=== PATIENT | female | born 1955 | race Hispanic/Latino ===

== ENCOUNTER 2024-12-01 12:52 | Day surgery (SDC) | payer OTHER ==
--- NOTE | 2024-11-30 14:14 | RAD REPORT ---
EXAMINATION: TWO VIEW CHEST XR CLINICAL INDICATION: pre op for day surgery TECHNIQUE: 2 views of the chest was performed. COMPARISON: 03/17/2023 FINDINGS: The lungs are well inflated and clear. The heart is mildly enlarged in size. No displaced fractures e vident. IMPRESSION: No acute or significant abnormalities.
[2024-11-30 14:37] LABS: Absolute Basophils 0.1 K/uL (0-0.5); Absolute Eosinophils 0.1 K/uL (0-0.5); Absolute Lymphocytes (CBC) 1.4 K/uL (0.7-4.9); Absolute Monocytes 0.5 K/uL (0.1-1.3); Basophils % 1.2 % (0-1.3); Eosinophils % 0.8 % (0-4.4); Hematocrit 42.3 % (36.0-45.0); Hemoglobin 14.3 g/dL (12.0-15.0); Lymphocytes % 17.5 % (15.3-44.8); MCH 31.2 pg (27.0-35.0); MCHC 33.8 g/dL (32.0-36.0); MCV 92.5 fL (80-100); MPV 8.7 fL (7.6-11.3); Monocytes % 6.7 % (3.3-12.3); Neutrophils % 73.8 % (41.7-73.7); Nucleated Red Blood Cells % 0.1 % (0-0); Platelets 323 thou/uL (152-406); RBC Red Blood Cell Count 4.57 M/uL (3.86-4.86); Red Cell Distribution Width 13.4 % (12.1-15.2)
[2024-11-30 14:50] LABS: Anion Gap 9.6 mEq/L (5.0-15.0); Potassium 3.6 mEq/L (3.5-5.1)
--- NOTE | 2024-12-01 12:42 | EKG ---
Test Date: 2024-11-30 Test Time: 14:29:22 Personnel Recruiter: PREO MEASUREMENT RESULTS: Intervals: Rate: 57 IA: 162 QRSD: 92 QT: 412 QTc: 401 [place]: P: 78 IA: 162 QRS: 77 T: 77 INTERPRETIVE STATEMENTS: Sinus bradycardia Otherwise normal ECG No previous ECG available for comparison Electronically Signed On 12-01-24 12:40:38 FACIALIST by Ketan Kumar
[2024-12-01] MEDS ORDERED: NA CHLORIDE 0.9% 1,000 ML ONE (13:23)
[2024-12-01] MEDS ORDERED: propofoL 200 MG/20 ML VIAL IV ONE (13:50)
[2024-12-01] MEDS ORDERED: FENTANYL CITR 100 MCG/2 ML ONE (13:51)
[2024-12-01] MEDS ORDERED: LIDOCAINE 2% MPF 5 ML VIAL ONE (13:51)
[2024-12-01] MEDS ORDERED: ONDANSETRON 4 MG/2 ML VIAL ONE (13:53)
[2024-12-01] MEDS ORDERED: MIDAZOLAM HCL 2 MG/2 ML INJ ONE (14:30)
[2024-12-01] MEDS: CEFAZOLIN SODIUM 1 GM/VIAL ONE (14:55)
[2024-12-01] MEDS ORDERED: EPHEDRINE SULF 50 MG/ML VIAL ONE (15:00)
--- NOTE | 2024-12-01 15:29 | P.BOP ---
Preoperative diagnosis: infected left chest wall and right axilla subQ masses Postoperative diagnosis: same Primary procedure: 1. Excisional biopsy infected left chest wall subQ mass 3x3cm Secondary procedure: 2. Excisional biopsy infected right axilla subQ mass 3x3cm Estimated blood loss: <10cc Specimen: mass x 2 Findings: as above Anesthesia: General Complications: None Transferred to: Recovery Room Condition: Good
[2024-12-01 15:51] VITALS: O2SAT 98
[2024-12-01 16:54] VITALS: BP 139/54; TEMP 97
--- NOTE | 2024-12-01 23:58 | DS ---
Date of Discharge: 12/01/2024 Diagnosis: Infected left chest wall and right axillary subcutaneous mass. Procedure: Excisional biopsy of infected left chest wall and right axillary mass. Condition: Stable. Disposition: Home. Activity: As tolerated. No heavy lifting. Follow up in my office in 1 week. Call for appointment at [phone]. Keep area dry for 24 hours, then after that clean with soap and water. Apply triple an tibiotics and a gauze. EVER/RUBIN Voice ID: [id number] Report ID: [id number]
--- NOTE | 2024-12-01 23:58 | OP ---
Date of Procedure: 12/01/2024 Surgeon: Caleb Dye MD Preoperative Diagnosis: Infected left chest wall and right axillary subcutaneous masses. Postoperative Diagnosis: Infected left chest wall and right axillary subcutaneous masses. Procedures: 1.Excisional biopsy of infected left chest wall subcutaneous mass, 3 x 3 cm. 2.Excisional biopsy of infected right axillary subcutaneous mass, 3 x 3 cm. Estimated Blood Loss: Less than 10 cc. Specimen: Mass x2. Findings: As above. Anesthesia: General plus local. Indications: This is the case of a 69-year-old patient, dealing with 2 masses for the last week or s o or little bit more, even started on p.o. antibiotics, but did not respond. The areas got worse to the point that she need surgical intervention. She cannot have an I and D in office, too sensitive f or her. So, we offered her excisional biopsy of infected chest wall and axillary masses under anesth esia with benefits, alternatives, and risks including, but not limited to infection, bleeding, damage to adjacent structures, anesthesia complication, recurrence, IL, and even . She also understan ds this may not relieve the symptoms. She might need more than one surgical intervention. She also understands she may require to have dressing changes with wet-to-dry gauze. She understood. She pre rodríguez obviously to have it closed. Even we close that area, we explained to her that we may need wound care in the future. She signed a consent. The areas of concern were marked by me and the patient w christina in the room. Description Of Procedure: The patient was brought to the operating room, placed in supine position. Anesthesia was induced without complication. Each mass was done individually, done using same techn ique, which consisted of; after time-out, injected local anesthetic. I proceeded to do a wedge incis ion on the skin. Incision was carried down to subcutaneous tissue. Mass was excised in 1 unit. It was cultured. The area was irrigated. Hemostasis obtained. Approximated subcutaneous tissue with 3 -0 chromic. I approximated loosely the skin with 3-0 nylon, leaving some space in between for draina ge. The same was done with the axillary mass through a different incision. The patient tolerated ea ch procedure well. The patient was sent to recovery in stable condition. Sponge count and instrumen t counts correct. HM/MODL Voice ID: [id number] Report ID: [id number]
== END 2024-12-01 16:45 | disposition home or self-care (01) ==
LOC: OR 12:52
PROVIDERS: ATTEND Surgery
PROC: 0JB60ZZ Excision of Chest Subcutaneous Tissue and Fascia, Open Approach (ICD-10-PCS; 2024-12-01)
PROC: 0JBF0ZZ Excision of Left Upper Arm Subcutaneous Tissue and Fascia, Open Approach (ICD-10-PCS; principal; 2024-12-01 14:41)
DX: L72.0 Epidermal cyst (principal); L08.9 Local infection of the skin and subcutaneous tissue, unspecified
CPT/HCPCS: 93005; 87070; 85025; 80048; 36415; 87205 ×2; 82947 ×2; 88304; 87075; 71046; 11403 ×2; J2704; J2003; J2250; J3010; J2405; J7030; J0690; 88305